=== PATIENT | female | born 1975 | race Caucasian/White ===

== ENCOUNTER 2020-07-04 23:48 | Emergency (ER) | payer OTHER ==
[2020-07-05 00:39] VITALS: BMI 27.1
--- NOTE | 2020-07-05 00:55 | PDOC ---
History of Present Illness - General Chief Complaint: Pain, Acute Stated Complaint: STOMACH PAIN Time Seen by Provider: 07/05/20 00:54 History Source: Patient Exam Limitations: No Limitations - History of Present Illness Initial Comments: 07/05/20 00:55 Alem Jiménez is a 45F with PMH gallstones presenting with RUQ pain after a meal. Patient moved from [place] 3 years ago, was diagnosed with gallstones while in [place]. Since has had intermittent RUQ pain lasting on average 8 hours at a time after meals. Today pain started on 3PM after eating lunch and has been constant and throbbing since, radiates to flank. Denies N/V, fevers, urinary sx, constipation/diarrhea. PSH . No meds taken. No other PMH. No meds. No allergies. Denies alcohol/drugs/tobacco. Past History - Medical History Allergies/Adverse Reactions: Allergies Allergy/AdvReac Type Severity Reaction Status Date / Time No Known Allergies Allergy Verified 07/05/20 00:39 Home Medications: Ambulatory Orders Cephalexin Monohydrate [Keflex -] 500 mg PO BID 7 Days #14 capsule 07/05/20 - Reproductive History Is Patient Now?: No - Psycho-Social/Smoking History Smoking History: Never smoked Information on smoking cessation initiated: No - Substance Abuse Hx (Audit-C & DAST Scrn) How often the patient has a drink containing alcohol: Never Score: In Men: 4 or > Positive; In Women: 3 or > Positive: 0 Screen Result (Pos requires Nsg. Audit-10AR): Negative In the last yr the pt used illegal drug/Rx for NonMed reason: No Score: Yes response is considered Positive: 0 Screen Result (Positive result requires Nsg. DAST-10): Negative Review of Systems - Review of Systems Able to Perform ROS?: Yes Constitutional: No: Symptoms Reported HEENTM: No: Symptoms Reported Respiratory: No: Symptoms reported Cardiac (ROS): No: Symptoms Reported ABD/GI: Yes: Abdominal cramping. No: Constipated, Diarrhea, Nausea, Poor Appetite, Poor Fluid Intake, Vomiting : No: Symptoms Reported Musculoskeletal: No: Symptoms Reported Integumentary: No: Symptoms Reported Neurological: No: Symptoms reported Endocrine: No: Symptoms Reported Hematologic/Lymphatic: No: Symptoms Reported All Other Systems: Reviewed and Negative *Physical Exam - Vital Signs Last Vital Signs Temp Pulse Resp BP Pulse Ox 97 F L 76 18 106/70 98 07/04/20 23:55 07/04/20 23:55 07/04/20 23:55 07/04/20 23:55 07/04/20 23:55 - Physical Exam General Appearance: Yes: Nourished, Appropriately Dressed, Obese, Other (sitting in chair clutching RUQ). No: Apparent Distress HEENT: positive: EOMI, FRANCISCO J, Normal Voice, Symmetrical, Pharynx Normal, Hearing Grossly Normal. negative: Scleral Icterus (R), Scleral Icterus (L), Pharyngeal Erythema, Tonsillar Exudate, Tonsillar Erythema Neck: positive: Trachea midline, Normal Thyroid, Supple. negative: Tender, Rigid, Lymphadenopathy (R), Lymphadenopathy (L), Tender lateral, Tender midline Respiratory/Chest: positive: Lungs Clear, Normal Breath Sounds. negative: Chest Tender, Respiratory Distress, Accessory Muscle Use, Crackles, Rales, Rhonchi, St ridor, Wheezing Cardiovascular: positive: Regular Rhythm, Regular Rate Gastrointestinal/Abdominal: positive: Normal Bowel Sounds, Tender (RUQ, +Fleming sign), Soft. negative: Organomegaly, Pulsatile Mass, Distended, Guarding, Rebound, Hernia Musculoskeletal: positive: Normal Inspection. negative: CVA Tenderness, Decreased Range of Motion, Vertebral Tenderness Extremity: positive: Normal Capillary Refill, Normal Inspection, Normal Range of Motion, Pelvis Stable. negative: Tender, Pedal Edema, Swelling, Calf Tenderness Integumentary: positive: Normal Color, Dry, Warm Neurologic: positive: Fully Oriented, Alert, Normal Mood/Affect, Normal Resp onse, Other (gait normal) ED Treatment Course - LABORATORY CBC & Chemistry Diagram: 07/05/20 01:12 07/05/20 01:12 - RADIOLOGY Radiograph Interpretation: 07/05/20 02:20 Hammad Baron MD wrote on Jul 05, 2020 at 02:13 AM: Referring Physician: RONN VERDIN RESIDENT Patient Name: ALEM JIMÉNEZ THIS IS A PRELIMINARY REPORT DATE OF SERVICE: 2020-07-05 01:16:51 IMAGES: 43 EXAM: ABDOMEN US -RUQ HISTORY: Known gallstones. Rule out cholecystitis. COMPARISON: None. FINDINGS: The liver measures 14.8 cm in length and is mildly heterogeneous. Hepatopetal flow is noted in the main portal vein. The common bile duct measures 3.3 mm. The gallbladder demonstrates sludge. A calculus is also seen in the neck of the gallbladder there is mild gallbladder wall thickening which measures up to 3.4 mm. Comet tail artifacts are seen along the anterior wall. Trace pericholecystic fluid is seen. Positive Fleming sign was reported. Unremarkable right kidney. Pancreas obscured by bowel gas. Unremarkable imaged abdominal aorta and IVC. IMPRESSION: 1. Cholelithiasis with findings indicative of acute cholecystitis. 2. 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 Presentation consistent with biliary colic vs. cholecystectomy vs. renal calculus. Getting RUQ US at this time to evaluation gallstones. Getting CBC/CMP/serum preg/UA/UC/lipase. 07/05/20 01:43 Labs notable for: - CBC WNL - CMP WNL - UA +nitrite and >2000 WBC, consistent with UTI 07/05/20 02:20 RUQ US shows gallstones, sludge, GB wall thickening, all consistent with acute cholecystitis. Has UTI, giving Keflex for treatment. Afebrile, in NAD, VSS. Eligible for discharge with outpatient surgery f/u and UTI treatment. Discharge - Discharge Information Problems reviewed: Yes Clinical Impression/Diagnosis: Abdominal pain Qualifiers: Abdominal location: right upper quadrant Qualified Code(s): R10.11 - Right upper quadrant pain Condition: Fair Disposition: HOME - Additional Discharge Information Prescriptions: Cephalexin Monohydrate [Keflex -] 500 mg PO BID 7 Days #14 capsule - Follow up/Referral Referrals: Brian Hoff MD [Staff Physician] - Aj Marin MD [Staff Physician] - - Patient Discharge Instructions Patient Printed Discharge Instructions: DI for Cholecystitis, DI for Laparoscopic Cholecystectomy Additional Instructions: Hoy lo vieron por dolor abdominal y clculos biliares. Jiménez ecografa muestra que tiene clculos biliares y luther infeccin en la vescula biliar llamada colecistitis. Sin embargo, esta no es luther infeccin que requiera luther ciruga de emergencia. En casa, evite comer alimentos grasos, ya que esto empeora el dolor. Tamjacob tiene luther infeccin del tracto urinario y le estamos dando Keflex ines tratamiento, tmelo dos veces al da lynette 7 molina. Necesita manuel a un cirujano ines paciente ambulatorio para planificar la extirpacin de jiménez vescula biliar. Si experimenta cualquier dolor, nuseas, vmitos, fiebre o cualquier otro sntoma nuevo o preocupante que empeore, regrese a la letty de emergencias. Today you were seen for abdominal pain and gallstones. Your ultrasound shows that you have gallstones and an infection in your gallbladder called cholecystitis. However, this is not an infection that requires an emergency surgery. At home, avoid eating fatty foods, as this makes the pain worse. You also have a urinary tract infection, and we are giving you Keflex for treatment, take it twice a day for 7 days. You need to see a surgeon as an outpatient for planning for a removal of your gallbladder. If you experience any worsening pain, nausea, vomiting, fevers, or any other new or concerning symptoms, please return to the emergency room. - Post Discharge Activity Work/Back to School Note: Back to Work
--- NOTE | 2020-07-05 01:07 | PDOC ---
Attending Attestation - Resident Resident Name: Rio Escobar - ED Attending Attestation I have performed the following: I have examined & evaluated the patient, The case was reviewed & discussed with the resident, I agree w/resident's findings & plan, Exceptions are as noted - HPI HPI: 07/05/20 01:07 This 45 yo female p/w RUQ pain - Physicial Exam PE: 07/05/20 01:07 wnwd 45 yo female p/w abdominal pain head ncat neck supple lungs cta b/l cvs [id number] abdomen ruq tenderness skin warm and dry extremities no edema neuro axox3,ambulatory - Medical Decision Making 07/05/20 01:13 She has a history of epigastric pain when she eats "fatty foods" Diagnosed in the past with gallbladder stones 07/05/20 01:25 plan GB ultrasound/labs/pain meds/reassess 07/05/20 01:26 Discharge - Discharge Information Problems reviewed: Yes Clinical Impression/Diagnosis: Abdominal pain Qualifiers: Abdominal location: right upper quadrant Qualified Code(s): R10.11 - Right upper quadrant pain Condition: Fair Disposition: HOME - Additional Discharge Information Prescriptions: Cephalexin Monohydrate [Keflex -] 500 mg PO BID 7 Days #14 capsule - Follow up/Referral Referrals: Aj Marin MD [Staff Physician] - Brian Hoff MD [Staff Physician] - - Patient Discharge Instructions Patient Printed Discharge Instructions: DI for Cholecystitis, DI for Laparoscopic Cholecystectomy Additional Instructions: Hoy lo vieron por dolor abdominal y clculos biliares. Jiménez ecografa muestra que tiene clculos biliares y luther infeccin en la vescula biliar llamada colecistitis. Sin embargo, esta no es luther infeccin que requiera luther ciruga de emergencia. En casa, evite comer alimentos grasos, ya que esto empeora el dolor. Tambin tiene luther infeccin del tracto urinario y le estamos dando Keflex ines tratamiento, tmelo dos veces al da lynette 7 molina. Necesita manuel a un cirujano ines paciente ambulatorio para planificar la extirpacin de jiménez vescula biliar. Si experimenta cualquier dolor, nuseas, vmitos, fiebre o cualquier otro sntoma nuevo o preocupante que empeore, regrese a la letty de emergencias. Today you were seen for abdominal pain and gallstones. Your ultrasound shows that you have gallstones and an infection in your gallbladder called cholecystitis. However, this is not an infection that requires an emergency surgery. At home, avoid eating fatty foods, as this makes the pain worse. You also have a urinary tract infection, and we are giving you Keflex for treatment, take it twice a day for 7 days. You need to see a surgeon as an outpatient for planning for a removal of your gallbladder. If you experience any worsening pain, nausea, vomiting, fevers, or any other new or concerning symptoms, please return to the emergency room. - Post Discharge Activity Work/Back to School Note: Back to Work
[2020-07-05] MEDS ORDERED: ACETAMINOPHEN 1000 MG/100 ML VIAL (NON FORMULARY) IVPB ONE (01:13)
[2020-07-05 01:28] LABS: BASO % 0.5 % (0-2.0); EOS % 1.5 % (0-4.5); HEMATOCRIT 37.9 % (32.4-45.2); HEMOGLOBIN 12.2 GM/dL (10.7-15.3); LYMPH % 23.3 % (8-40); MCH 29.2 pg (25.7-33.7); MCHC 32.3 g/dl (32.0-36.0); MEAN CELL VOLUME 90.3 fl (80-96); MEAN PLT VOLUME 9.8 fl (7.5-11.1); MONO % 5.7 % (3.8-10.2); PLATELET COUNT 210 K/MM3 (134-434); RBC 4.19 M/mm3 (3.60-5.2); RDW 15.7 % (11.6-15.6); WHITE BLOOD COUNT 6.8 K/mm3 (4.0-10.0)
[2020-07-05 01:32] LABS: EPI CELLS 22 /uL (0-25.1); HYALINE CASTS 3 /uL (0-3.1); URINE APPEARANCE CLEAR; URINE BACTERIA 2647 /uL (0-1359); URINE BILIRUBIN NEGATIVE (NEGATIVE); URINE COLOR YELLOW; URINE GLUCOSE (UA) NEGATIVE (NEGATIVE); URINE KETONE NEGATIVE (NEGATIVE); URINE LEUK ESTERASE TRACE (NEGATIVE); URINE NITRITE POSITIVE (NEGATIVE); URINE PROTEIN NEGATIVE (NEGATIVE); URINE RBC 8 /uL (0-23.9); URINE WBC 80 /uL (0-25.8)
[2020-07-05 01:37] LABS: INR 0.99 (0.83-1.09); PROTHROMBIN TIME (PATIENT) 11.7 SEC (9.7-13.0)
[2020-07-05] MEDS ORDERED: ACETAMINOPHEN INJECTION 100 ML IVPB ONE (01:37)
[2020-07-05 01:39] LABS: ACTIVATED PTT 26.4 SECONDS (25.2-36.5)
[2020-07-05 01:59] LABS: ALBUMIN 3.6 g/dl (3.4-5.0); ALK PHOS 75 U/L (45-117); ANION GAP 7 MMOL/L (8-16); BILIRUBIN,TOTAL 0.8 mg/dL (0.2-1); BLOOD UREA NITROGEN 12.5 mg/dL (7-18); CALCIUM 8.4 mg/dL (8.5-10.1); CHLORIDE 110 mmol/L (98-107); CO2 25 mmol/L (21-32); CREATININE 0.8 mg/dL (0.55-1.3); GLUCOSE,RANDOM 94 mg/dL (74-106); LIPASE 136 U/L (73-393); POTASSIUM 3.9 mmol/L (3.5-5.1); SGOT/AST 16 U/L (15-37); SGPT/ALT 31 U/L (13-61); SODIUM 141 mmol/L (136-145)
[2020-07-05] MEDS ORDERED: CEPHALEXIN MONOHYDRATE 500 MG CAPSULE (UD) PO ONE (02:02)
[2020-07-05] MEDS ORDERED: CEPHALEXIN MONOHYDRATE 500 MG CAPSULE (UD) ONE (02:12)
[2020-07-05 03:12] VITALS: BP 110/78; PULSE 70; TEMP 97.8
== END 2020-07-05 03:12 | disposition home or self-care (01) ==
LOC: JER 23:48
PROC: 3E0333Z Introduction of Anti-inflammatory into Peripheral Vein, Percutaneous Approach (ICD-10-PCS; principal; 2020-07-04)
DX: R10.11 Right upper quadrant pain (principal)
CPT/HCPCS: 36415; 76705-TC; 80053; 81003; 82550; 83690; 84484; 84703; 85025; 85610; 85730; 86850; 86900; 86901; 87086; 87186; 99284-25; J0131

== ENCOUNTER → 2023-01-17 | Day surgery (SDC) | payer BC | END | disposition home or self-care (01) | LOC: JRADUS-SUR 11:43 | PROVIDERS: ATTEND Family Medicine | PROC: 0H95XZX Drainage of Chest Skin, External Approach, Diagnostic (ICD-10-PCS; principal; 2023-01-17) | DX: N60.01 Solitary cyst of right breast (principal) | CPT/HCPCS: 19000; 76942-TC; 77065-TC; 88173; 88305-TC; A4648 ==